=== PATIENT | female | born 1925 | race Caucasian/White ===

== ENCOUNTER 2017-04-01 14:00 | Emergency (ER) | payer MEDICARE, BC ==
[2017-04-01 14:18] LABS: BASOPHILS % (AUTO) 0 % (0-3); EOSINOPHILS % (AUTO) 1 % (0-9); HEMATOCRIT 36 % (35-47); MEAN CORPUSCULAR HGB CONC 34.8 gm/dl (32.0-36.0); MEAN CORPUSCULAR VOLUME 91 fL (81-99); MONOCYTES % (AUTO) 6.3 % (0-12); NEUTROPHILS % (AUTO) 63.1 % (37-80)
[2017-04-01 14:25] VITALS: RESP 20; TEMP 97.4
[2017-04-01 14:28] LABS: ALBUMIN 3.6 gm/dl (3.4-5.0); POTASSIUM 4.1 mMol/L (3.5-5.1)
[2017-04-01] MEDS ORDERED: MORPHINE SULFATE 10 MG/ML SOL ONE ×2 (15:00→16:57)
[2017-04-01] MEDS: MORPHINE SULFATE 10 MG/ML SOL IV ONE ×2 (15:08→17:00)
[2017-04-01 16:13] VITALS: PULSE 70
[2017-04-01 18:47] VITALS: BP 140/68; O2SAT 97
== END 2017-04-01 17:37 | disposition short-term general hospital (02) | DRG 536 ==
LOC: ED 14:00
DX: S72.141A Displaced intertrochanteric fracture of right femur, initial encounter for closed fracture (principal); S01.01XA Laceration without foreign body of scalp, initial encounter; W10.9XXA Fall (on) (from) unspecified stairs and steps, initial encounter
CPT/HCPCS: 70450; 72125; 73502; 80053; 85025; 85610; 99285; G0390; J2270

== ENCOUNTER 2017-04-20 08:00 | Outpatient (CLI) | payer MEDICARE, BC ==
[2017-04-01 18:47] VITALS: O2SAT 97
== END 2017-04-20 08:01 | disposition home or self-care (01) | DRG 561 ==
LOC: CONVCARE 08:00
PROVIDERS: ATTEND Orthopaedic Surgery
DX: S72.21XD Displaced subtrochanteric fracture of right femur, subsequent encounter for closed fracture with routine healing (principal)
CPT/HCPCS: 73502

== ENCOUNTER 2017-05-18 12:25 | Outpatient (CLI) | payer MEDICARE, BC ==
[2017-04-01 18:47] VITALS: O2SAT 97
== END 2017-05-18 12:26 | disposition home or self-care (01) | DRG 561 ==
LOC: CONVCARE 12:25
PROVIDERS: ATTEND Orthopaedic Surgery
DX: S72.21XD Displaced subtrochanteric fracture of right femur, subsequent encounter for closed fracture with routine healing (principal)
CPT/HCPCS: 73502

== ENCOUNTER 2017-07-20 13:14 | Outpatient (CLI) | payer MEDICARE, BC ==
[2017-04-01 18:47] VITALS: O2SAT 97
== END 2017-07-20 13:15 | disposition home or self-care (01) | DRG 561 ==
LOC: CONVCARE 13:14
PROVIDERS: ATTEND Orthopaedic Surgery
DX: S72.21XD Displaced subtrochanteric fracture of right femur, subsequent encounter for closed fracture with routine healing (principal)
CPT/HCPCS: 73502

== ENCOUNTER 2017-09-19 12:13 | Emergency (ER) | payer MEDICARE, BC ==
[2017-09-19 12:22] VITALS: BP 154/92; PULSE 94; RESP 16; TEMP 95.9; O2SAT 99
== END 2017-09-19 13:00 | disposition home or self-care (01) | DRG 561 ==
LOC: ED 12:13
DX: S62.101D Fracture of unspecified carpal bone, right wrist, subsequent encounter for fracture with routine healing (principal)
CPT/HCPCS: 99282